=== PATIENT | female | born 1985 | race Two or more races ===

== ENCOUNTER 2016-10-25 20:02 | Emergency (ER) | payer BC, OTHER ==
[~2016-10-25] VITALS: Ht 152.4 cm; Wt 62.1 kg
[~2016-10-25 20:02] MED LIST: HYDR-971 PO; METR500T PO; NAPR500T PO
[2016-10-25] MEDS ORDERED: METOCLOPRAMIDE 10 MG TABLET PO ONE (20:45)
[2016-10-25] MEDS ORDERED: DIPHENHYDRAMINE HCL 25 MG CAPSULE PO ONE (20:45)
--- NOTE | 2016-10-25 21:33 | RAD ---
PROCEDURE CT head without intravenous contrast. HISTORY Left-sided headache for 3 days. TECHNIQUE Axial images are obtained of the head from the skull base through the vertex without IV contrast Exposure: One or more of the following individualized dose reduction techniques were utilized for this examination: 1. Automated exposure control. 2. Adjustment of the mA and/or kV according to patient size. 3. Use of iterative reconstruction technique. COMPARISON None. FINDINGS The ventricles are appropriate in size, shape, and location for the patient's age.No obvious intracranial mass, mass-effect, midline shift, hemorrhage or obvious acute infarction is identified.Basilar cisterns are patent. Bone windows demonstrate no acute calvarial abnormality.The visualized paranasal sinuses appear clear. IMPRESSION No acute intracranial process. Electronically signed by: Lennox Handley MD (Oct 25, 2016 21:32:07)
[2016-10-25 21:36] LABS: BILIRUBIN,URINE NEGATIVE (NEG); GLUCOSE,URINE NEGATIVE (NEG); NITRITE,URINE NEGATIVE (NEG); PH,URINE 6.5; PROTEIN,URINE NEGATIVE (NEG-TRACE); UROBILINOGEN,URINE 0.2 mg/dL (0.2 mg/dL)
[2016-10-25 21:42] LABS: BACTERIA,URINE FEW /HPF (0-FEW); RBC,URINE >40 /HPF (0-2); SQUAMOUS EPITHELIAL CELL,UR MOD /LPF
[2016-10-25 21:51] LABS: BASO # 0.1 x10^3/uL (0.0-0.2); BASO % 1 % (0-3); EOS % 2 % (0-3); HEMATOCRIT 41.4 % (36.0-47.0); HEMOGLOBIN 13.8 g/dL (12.0-15.5); LYMPH # 3.2 x10^3/uL (1.0-4.8); LYMPH % 33 % (24-48); MEAN CORPUSCULAR HEMOGLOBIN 31 pg (25-35); MEAN CORPUSCULAR HGB CONC 33 g/dL (31-37); MEAN CORPUSCULAR VOLUME 92 fL (79-100); MONO % 8 % (0-9); NEUT % 56 % (31-73); PLATELET COUNT 262 x10^3/uL (140-400); WHITE BLOOD COUNT 9.6 x10^3/uL (4.0-11.0)
--- NOTE | 2016-10-25 21:51 | PHYS DOC ---
Past Medical History Past Medical History: Hypertension Past Surgical History: Appendectomy Alcohol Use: None Drug Use: None Adult General Chief Complaint Chief Complaint: HEADACHE HPI HPI Patient is a 31 year old female who presents with headache. Patient reports for the past 3 days she has had a throbbing headache on the left side of her head. She also reports some tingling in her right fingers. She reports that she has had headaches like this in the past, and was seen in June for similar headache at this hospital. She has tried Tylenol home with insufficient relief. No other acute complaints. Review of Systems Review of Systems Constitutional: Denies fever or chills Eyes: Denies change in visual acuity or eye pain HENT: Denies nasal congestion or sore throat Respiratory: Denies cough or shortness of breath Cardiovascular: Denies chest pain GI: Denies abdominal pain, nausea, vomiting, bloody stools or diarrhea : Denies dysuria or hematuria Musculoskeletal: Denies back pain or joint pain Integument: Denies rash or skin lesions Neurologic: Headache, tingling in R fingers. Denies Focal weakness Current Medications Current Medications Current Medications Medications (Trade) Dose Ordered Sig/Caren Start Time Stop Time Status Last Admin Dose Admin Diphenhydramine HCl (Benadryl) 25 mg 1X ONCE 10/25/16 20:45 10/25/16 20:49 DC 10/25/16 20:59 25 MG Ketorolac Tromethamine (Toradol) 15 mg 1X ONCE 10/25/16 22:00 10/25/16 22:01 DC 10/25/16 22:02 15 MG Metoclopramide HCl 10 mg 10 mg 1X ONCE 10/25/16 20:45 10/25/16 20:49 DC 10/25/16 20:59 10 MG Sodium Chloride (Iv Sodium Chloride 0.9% 1000ml Bag) 1,000 ml @ 1,000 mls/hr 1X ONCE 10/25/16 22:00 10/25/16 22:59 DC 10/25/16 22:02 1,000 MLS/HR Allergies Allergies Allergies Coded Allergies Type Severity Reaction Last Updated Verified No Known Drug Allergies 05/13/16 No Physical Exam Physical Exam Constitutional: Well developed, well nourished, no acute distress, non-toxic appearance HENT: Normocephalic, atraumatic, bilateral external ears normal Eyes: PERRL, EOMI, conjunctiva normal, no discharge Neck: Normal range of motion, no stridor Cardiovascular: Heart rate normal, regular rhythm, no murmur Lungs & Thorax: Bilateral breath sounds clear to auscultation Abdomen: Bowel sounds normal, soft, non-distended, no TTP Skin: Warm, dry, no erythema, no rash Extremities: No obvious deformity, no edema Neurologic: Alert and oriented X 3, GCS 15, CN II-XII grossly intact, strength intact and symmetrical throughout, sensation to light touch intact throughout, no dystaxia noted Current Patient Data Vital Signs Vital Signs Date Time Temp Pulse Resp B/P Pulse Ox O2 Delivery O2 Flow Rate FiO2 10/25/16 22:53 58 18 117/74 99 Room Air 10/25/16 20:45 97.8 97.8 Lab Values Laboratory Tests Test 10/25/16 20:50 10/25/16 20:56 10/25/16 21:39 Urine Collection Type Unknown Urine Color Yellow Urine Clarity Cloudy Urine pH 6.5 Urine Specific [place] <=1.005 Urine Protein Negativemg/dL (NEG-TRACE) Urine Glucose (UA) Negativemg/dL (NEG) Urine Ketones (Stick) Negativemg/dL (NEG) Urine Blood Large (NEG) Urine Nitrite Negative (NEG) Urine Bilirubin Negative (NEG) Urine Urobilinogen Dipstick 0.2mg/dL (0.2 mg/dL) Urine Leukocyte Esterase Trace (NEG) Urine RBC >40/HPF (0-2) Urine WBC 1-4/HPF (0-4) Urine Squamous Epithelial Cells Mod/LPF Urine Bacteria Few/HPF (0-FEW) POC Urine HCG, Qualitative Hcg negative (Negative) White Blood Count 9.6x10^3/uL (4.0-11.0) Red Blood Count 4.50x10^6/uL (3.50-5.40) Hemoglobin 13.8g/dL (12.0-15.5) Hematocrit 41.4% (36.0-47.0) Mean Corpuscular Volume 92fL (79-100) Mean Corpuscular Hemoglobin 31pg (25-35) Mean Corpuscular Hemoglobin Concent 33g/dL (31-37) Red Cell Distribution Width 13.0% (11.5-14.5) Platelet Count 262x10^3/uL (140-400) Neutrophils (%) (Auto) 56% (31-73) Lymphocytes (%) (Auto) 33% (24-48) Monocytes (%) (Auto) 8% (0-9) Eosinophils (%) (Auto) 2% (0-3) Basophils (%) (Auto) 1% (0-3) Neutrophils # (Auto) 5.4x10^3uL (1.8-7.7) Lymphocytes # (Auto) 3.2x10^3/uL (1.0-4.8) Monocytes # (Auto) 0.8x10^3/uL (0.0-1.1) Eosinophils # (Auto) 0.2x10^3/uL (0.0-0.7) Basophils # (Auto) 0.1x10^3/uL (0.0-0.2) Sodium Level 144mmol/L (136-145) Potassium Level 3.6mmol/L (3.5-5.1) Chloride Level 107mmol/L (98-107) Carbon Dioxide Level 28mmol/L (21-32) Anion Gap 9 (6-14) Blood Urea Nitrogen 8mg/dL (7-20) Creatinine 0.7mg/dL (0.6-1.0) Estimated GFR (Cockcroft-Gault) 96.4 BUN/Creatinine Ratio 11 (6-20) Glucose Level 100mg/dL (70-99) H Calcium Level 9.2mg/dL (8.5-10.1) Total Bilirubin 0.4mg/dL (0.2-1.0) Aspartate Amino Transferase (AST) 21U/L (15-37) Alanine Aminotransferase (ALT) 33U/L (14-59) Alkaline Phosphatase 66U/L (46-116) Total Protein 8.0g/dL (6.4-8.2) Albumin 4.4g/dL (3.4-5.0) Albumin/Globulin Ratio 1.2 (1.0-1.7) Laboratory Tests 10/25/16 21:39 Laboratory Tests 10/25/16 21:39 EKG EKG [] Radiology/Procedures Radiology/Procedures CT head: IMPRESSION No acute intracranial process. Course & Med Decision Making Course & Med Decision Making Pertinent Labs and Imaging studies reviewed. (See chart for details) Patient is 31-year-old female who presents with headache. Has had similar headaches in the past. No concerning findings on physical exam. CT head and labs ordered over in [facility], as well as Reglan and Benadryl. Patient reports headache already improved after this. CT head results as above. Labs unremarkable, except for blood and white blood cells in urine (will await urine culture to treat for UTI as she does not have any symptoms for this). IV fluid bolus and dose of Toradol ordered as well. Discussed results with patient, who feels her headache is nearly resolved at this time. Will plan discharge home with prescription for Fioricet, instructions for close follow up with neurologist, return precautions. Dragon Disclaimer Dragon Disclaimer This electronic medical record was generated, in whole or in part, using a voice recognition dictation system. Departure Departure Impression: Primary Impression: Headache Disposition: HOME, SELF-CARE Condition: IMPROVED Referrals: AYANNA UMANA MD (PCP) CORINNE DÍAZ MD Patient Instructions: Headache, FAQs, Migraine Headache Additional Instructions: Thank you for allowing us to provide care today in the Emergency Department. Take the provided medication as directed. Use caution as this medication may make you drowsy. Schedule a follow up appointment with your primary care doctor and with a neurologist using the provided contact information. Return promptly to the Emergency Department if you develop any new or concerning symptoms. Scripts Butalb/Acetaminophen/Caffeine (Fioricet 50-300-40 Mg Capsule)1 Each Capsule1 Each PO Q6HRS PRN HEADACHE #15 CAP Prov:OZZY ALSTON MD 10/25/16 OZZY ALSTON MD Oct 25, 2016 21:52
[2016-10-25 21:58] LABS: CALCIUM 9.2 mg/dL (8.5-10.1); CREATININE 0.7 mg/dL (0.6-1.0); GFR 96.4; POTASSIUM 3.6 mmol/L (3.5-5.1)
[2016-10-25] MEDS ORDERED: IV NORMAL SALINE 1000ML BAG 1,000 ML IV ONE (22:00)
[2016-10-25] MEDS ORDERED: KETOROLAC 15 MG/ML VIAL. IV ONE (22:00)
[2016-10-25 22:04] LABS: ALBUMIN 4.4 g/dL (3.4-5.0); ALBUMIN/GLOBULIN RATIO 1.2 (1.0-1.7); TOTAL BILIRUBIN 0.4 mg/dL (0.2-1.0)
[2016-10-25] MEDS ORDERED: BUTA1CAP29 PO (22:45)
[2016-10-25 22:53] VITALS: BP 117/74
== END 2016-10-25 23:11 | disposition home or self-care (01) ==
LOC: ER 20:02
DX: R51 Headache (principal); I10 Essential (primary) hypertension; Z90.49 Acquired absence of other specified parts of digestive tract
CPT/HCPCS: 36415; 70450; 80053; 81001; 81025; 85027; 87086; 96361; 96374; 99285; J1885; J7030; J8597; Q0163

== ENCOUNTER 2021-08-08 12:48 | Emergency (ER) | payer OTHER ==
[~2021-08-08] VITALS: Ht 152.4 cm; Wt 57.9 kg
[~2021-08-08 12:48] MED LIST changes: +BUTA1CAP29 PO; +HYDR-3164 PO; -HYDR-971 PO; +NAPR-683 PO; -NAPR500T PO
[2021-08-08 14:50] VITALS: BP 149/78
[2021-08-08 15:25] LABS: BILIRUBIN,URINE NEGATIVE (NEG); CLARITY,URINE CLOUDY; NITRITE,URINE POSITIVE (NEG); PROTEIN,URINE NEGATIVE (NEG-TRACE)
[2021-08-08 15:27] LABS: COLOR,URINE YELLOW
[2021-08-08 15:35] LABS: BACTERIA,URINE FEW /HPF (0-FEW); RBC,URINE OCC /HPF (0-2)
[2021-08-08] MEDS ORDERED: CEPH500T PO (15:41)
--- NOTE | 2021-08-08 15:42 | PHYS DOC ---
Past Medical History Past Medical History: Hypertension (KELSEY BACON) Past Surgical History: No Surgical History, Appendectomy (KELSEY BACON) Smoking Status: Never Smoker Alcohol Use: None Drug Use: None (KELSEY BACON) General Adult EDM: Chief Complaint: PAIN ON URINATION HPI: HPI: Patient is a 36 year old male with history of frequent UTI who presents with painful urination. Patient states that she first noticed some painful urination on morning (3 days ago), but it has gotten worse since that time. She reports associated suprapubic pain, denies dysuria. Patient took [id number] medication the past 2 days in effort to help treat the UTI, but it was unsuccessful. She denies fever, chills, abdominal pain, N/V/D, constipation, flank pain, vaginal pain, increased vaginal discharge, concern for STI. Patient has no other complaints at this time. (KELSEY BACON) Review of Systems: Review of Systems: ROS negative except as mentioned in HPI. (KELSEY BACON) Heart Score: C/O Chest Pain: No (KELSEY BACON) Allergies: Allergies: Allergies Coded Allergies Type Severity Reaction Last Updated Verified No Known Drug Allergies 08/08/21 No (KELSEY BACON) Physical Exam: PE: Constitutional: Well developed, well nourished, no acute distress, non-toxic appearance. Cardiovascular: Heart rate regular rhythm, no murmur. Lungs & Thorax: Bilateral breath sounds clear to auscultation. Abdomen: Soft, no tenderness, no masses, no pulsatile masses. Skin: Warm, dry, no erythema, no rash. Back: No tenderness, no CVA tenderness. (KELSEY BACON) Current Patient Data: Labs: Laboratory Tests Test 08/08/21 15:02 08/08/21 15:19 Urine Collection Type Unknown Urine Color Yellow Urine Clarity Cloudy Urine pH 7.0 (<5.0-8.0) Urine Specific [place] <=1.005 (1.000-1.030) Urine Protein Negative mg/dL (NEG-TRACE) Urine Glucose (UA) Negative mg/dL (NEG) Urine Ketones (Stick) Negative mg/dL (NEG) Urine Blood Trace (NEG) Urine Nitrite Positive (NEG) Urine Bilirubin Negative (NEG) Urine Urobilinogen Dipstick 1.0 mg/dL (0.2 mg/dL) Urine Leukocyte Esterase Moderate (NEG) Urine RBC Occ /HPF (0-2) Urine WBC 5-10 /HPF (0-4) Urine Bacteria Few /HPF (0-FEW) Bedside Urine HCG, Qualitative Hcg negative (Negative) Vital Signs: Vital Signs Date Time Temp Pulse Resp B/P (MAP) Pulse Ox O2 Delivery O2 Flow Rate FiO2 08/08/21 14:50 98.5 60 18 149/78 (101) 99 Room Air 98.5 (KELSEY BACON) Course & Med Decision Making: Course & Med Decision Making Pertinent Labs and Imaging studies reviewed. (See chart for details) Patient has frequent history of UTI, and states this feels similar. Urinalysis obtained. Patient has no concern for STI. Urine showed signs of infection. Patient will be treated with Keflex twice daily for 7 days. Patient provided with return precautions. Patient understands and is agreeable to discharge plan. (KELSEY BACON) Dragon Disclaimer: Dragon Disclaimer: This electronic medical record was generated, in whole or in part, using a voice recognition dictation system. (KELSEY BACON) Departure Departure Impression: Primary Impression: Urinary tract infection without complication Disposition: 01 HOME / SELF CARE / HOMELESS Condition: STABLE Referrals: AYANNA UMANA MD (PCP) Patient Instructions: Urinary Tract Infection, [id number] Scripts Cephalexin (CEPHALEXIN) 500 Mg Tablet 1 TAB PO BID, #14 TAB Prov: KELSEY BACON 08/08/21 Attending Signature Attending Signature I have reviewed the PA/[employer]'s note and plan of care. I was available for con sultation as needed during the patient's visit in the emergency department. I agree with the clinical impression, plan, and disposition. (ANAM FELIPE DO) KELSEY BACON Aug 08, 2021 15:42 ANAM FELIPE DO Aug 08, 2021 17:43
== END 2021-08-08 16:11 | disposition home or self-care (01) ==
LOC: ER 12:48
DX: N39.0 Urinary tract infection, site not specified (principal); I10 Essential (primary) hypertension; Z90.89 Acquired absence of other organs
CPT/HCPCS: 81001; 81025; 87086; 99283